=== PATIENT | male | born 1950 | race Caucasian/White ===

== ENCOUNTER 2016-02-21 08:28 | Emergency (ER) | payer BC ==
[2016-02-21 08:59] VITALS: BP 132/76
--- NOTE | 2016-02-21 10:08 | UC ---
Throat Pain/Nasal Dae HPI - HPI Summary HPI Summary: compliant of nasal congestion and cough that started approx 7 days ago worse at night d/t cough and post nasal discharge sore throat d/t coughing- cough is sometimes productive more fatigued than usual as the day goes on his symptoms get worse denies fever , chills, headaches, body aches denies shortness of breath, chest pain took some generic robitussin at night without relief - History of Current Complaint Chief Complaint: UCRespiratory Stated Complaint: HEAD,CHEST COLD/ COMPLAINT Time Seen by Provider: 02/21/16 09:59 Hx Obtained From: Patient - Allergies/Home Medications Allergies/Adverse Reactions: Allergies Allergy/AdvReac Type Severity Reaction Status Date / Time seasonal Allergy Runny Nose Uncoded 02/21/16 08:51 Home Medications: Home Medications Atorvastatin* [Lipitor*] mg PO BID 02/21/16 [History] GuaiFENesin DM* [Robitussin DM*] 10 ml PO Q6H PRN 02/21/16 [History Confirmed ] Hydrochlorothiazide TAB* [Hydrodiuril TAB*] 25 mg PO QAM 02/21/16 [History Confirmed 02/21/16] Lisinopril TAB* [Prinivil TAB*] 40 mg PO QAM 02/21/16 [History Confirmed ] Magnesium Oxide TAB* [MagOx 400 TAB*] 400 mg PO BID 02/21/16 [History Confirmed 02/21/16] Omeprazole CAP* [Prilosec CAP* 20 MG] 20 mg PO 1700 02/21/16 [History Confirmed 02/21/16] Potassium Chlor TAB* [Klor Con ER TAB*] 20 meq PO BID 02/21/16 [History Confirmed 02/21/16] PMH/Surg Hx/FS Hx/Imm Hx Previously Healthy: Yes Cardiovascular History Of: Reports: Hypertension - Surgical History Surgical History: Yes Surgery Procedure, Year, and Place: T&A as a child - Family History Known Family History: Positive: Cardiac Disease - parents, Hypertension - parents, Diabetes - Social History Occupation: Retired Alcohol Use: Weekly Alcohol Amount: 6-8 Substance Use Type: None Smoking Status (MU): Heavy Every Day Tobacco Smoker Type: Cigarettes Amount Used/How Often: 1 PPD Length of Time of Smoking/Using Tobacco: 42 Years Have You Smoked in the Last Year: Yes Household Exposure Type: Cigarettes Cessation Counseling: Patient Advised to Stop - Immunization History Most Recent Influenza Vaccination: December 2015 Review of Systems Constitutional: Negative Skin: Negative Eyes: Negative ENT: Nasal Discharge Respiratory: Cough Cardiovascular: Negative Gastrointestinal: Negative Genitourinary: Negative Motor: Negative Neurovascular: Negative Musculoskeletal: Negative Neurological: Negative Psychological: Negative All Other Systems Reviewed And Are Negative: Yes Physical Exam Triage Information Reviewed: Yes Appearance: No Pain Distress, Well-Nourished Vital Signs: Initial Vital Signs Temp 98 F 02/21/16 08:49 Pulse 68 02/21/16 08:49 Resp 16 02/21/16 08:49 BP 132/76 02/21/16 08:49 Pulse Ox 97 02/21/16 08:49 Vital Signs Reviewed: Yes Eyes: Positive: Conjunctiva Clear ENT: Positive: Pharyngeal erythema, Nasal congestion, TMs normal Neck: Positive: No Lymphadenopathy Respiratory: Positive: Wheezing - wheezing throughout some rhochi in LLL Cardiovascular: Positive: RRR, No Murmur Abdomen Description: Positive: Nontender, Soft Bowel Sounds: Positive: Present Musculoskeletal: Positive: No Edema Neurological: Positive: Alert Psychological Exam: Normal Skin Exam: Normal Throat Pain/Nasal Course/Dx - Course Course Of Treatment: exam completed. wheezing and rhonchi- smoker 1ppd for over 10 years. will treat as COPD exacerbation d/t possibilitiy of undiagnosed COPD will followup with PCP - Differential Dx/Diagnosis Differential Diagnosis/HQI/PQRI: URI Provider Diagnoses: bronchitis-. COPD exacerbation Discharge - Discharge Plan Condition: Stable Disposition: HOME Prescriptions: Albuterol HFA INHALER* [Ventolin HFA Inhaler*] 2 puff INH Q4H PRN #1 mdi PRN Reason: Sob/Wheezing Azithromycin TAB* [Zithromax TAB (Z-FOZIA) 250 mg #6 tabs] 2 tab PO .TODAY, THEN 1 DAILY #1 fozia Spacer/Aerosol-Holding Chamber [Aerochamber Mv] 1 mis XX Q4HR #1 mis predniSONE TAB* [Deltasone TAB*] 50 mg PO DAILY #5 tab Patient Education Materials: COPD (Chronic Obstructive Pulmonary Disease) (ED) , Acute Bronchitis (ED), How to Use a Metered-Dose Inhaler and a Spacer (ED) Referrals: Abdullahi Bowser MD [Primary Care Provider] - Additional Instructions: Please take antibiotic as directed Use your albuterol inhaler every 4-6 hours when needed for wheezing, shortness of breath or uncontrolled coughing. Increase fluids and rest Take acetaminophen or ibuprofen for fever or pain Please review your discharge instructions. If your symptoms do not improve please call your primary care provider or return to urgent care.
== END 2016-02-21 10:25 | disposition home or self-care (01) ==
LOC: UCCORT 08:28
DX: J44.1 Chronic obstructive pulmonary disease with (acute) exacerbation (principal); I10 Essential (primary) hypertension; F17.210 Nicotine dependence, cigarettes, uncomplicated
CPT/HCPCS: 99212; G0463

== ENCOUNTER 2018-03-02 07:17 | Emergency (ER) | payer MEDICARE ==
[2018-03-02 07:27] VITALS: BP 115/53
--- NOTE | 2018-03-02 07:50 | UC ---
Throat Pain/Nasal Dae HPI - HPI Summary HPI Summary: Per chemical dependency counselor "x2 nights pt states he has been "coughing like crazy, can't sleep ", Sinus congestion and runny nose. Body aches as well. Pt did get his flu vaccine this year. " -sx started suddenly 2 days ago. + body aches. no known fevers. appetite down. no n/v. -has albuterol rx for prn use. used a couple of times in past 2 days w/o signfiicant relief. - History of Current Complaint Chief Complaint: UCGeneralIllness Stated Complaint: COUGH,RUNNY NOSE,SORE THROAT,BODY ACHES Time Seen by Provider: 03/02/18 07:38 Pain Intensity: 0 - Allergies/Home Medications Allergies/Adverse Reactions: Allergies Allergy/AdvReac Type Severity Reaction Status Date / Time seasonal Allergy Runny Nose Uncoded 03/02/18 07:27 PMH/Surg Hx/FS Hx/Imm Hx Previously Healthy: Yes Endocrine History: Dyslipidemia Cardiovascular History: Hypertension - Surgical History Surgical History: Yes Surgery Procedure, Year, and Place: T&A as a child - Family History Known Family History: Positive: Cardiac Disease - parents, Hypertension - parents, Diabetes - Social History Alcohol Use: Weekly Alcohol Amount: 6-8 Substance Use Type: None Smoking Status (MU): Heavy Every Day Tobacco Smoker Type: Cigarettes Amount Used/How Often: 1 PPD Length of Time of Smoking/Using Tobacco: 42 Years Have You Smoked in the Last Year: Yes Household Exposure Type: Cigarettes - Immunization History Most Recent Influenza Vaccination: December 2015 Review of Systems All Other Systems Reviewed And Are Negative: Yes Constitutional: Positive: Fatigue Skin: Positive: Negative Eyes: Positive: Negative ENT: Positive: Nasal Discharge Respiratory: Positive: Cough Cardiovascular: Positive: Negative Gastrointestinal: Positive: Negative Genitourinary: Positive: Negative Motor: Positive: Negative Neurovascular: Positive: Negative Musculoskeletal: Positive: Negative Neurological: Positive: Negative Psychological: Positive: Negative Is Patient Immunocompromised?: No Physical Exam Triage Information Reviewed: Yes Appearance: Ill-Appearing - mild, moderate coughing. Vital Signs: Initial Vital Signs Temp 98.5 F 03/02/18 07:24 Pulse 81 03/02/18 07:24 Resp 18 03/02/18 07:24 BP 115/53 03/02/18 07:24 Pulse Ox 96 03/02/18 07:24 Vital Signs Reviewed: Yes Eye Exam: Normal ENT: Positive: Pharyngeal erythema, Nasal congestion, TMs normal - rt cerumen., Hoarse voice. Negative: Sinus tenderness Neck exam: Normal Neck: Positive: Supple, Nontender, No Lymphadenopathy Respiratory: Positive: Chest non-tender, No respiratory distress, Decreased breath sounds, Wheezing - rt insp/exp throughout. left clear. diminsihed througout. Cardiovascular Exam: Normal Cardiovascular: Positive: RRR Abdominal Exam: Normal Abdomen Description: Positive: Nontender, Soft Musculoskeletal Exam: Normal Neurological Exam: Normal Psychological Exam: Normal Skin Exam: Normal Throat Pain/Nasal Course/Dx - Course Course Of Treatment: -rapid flu + A. -CXR - neg. -discussed treatment with tamiflu. Witgh likely COPD, it is reasonable to treat and he prefers to treat. -We discussed risks of prednisone including but not limited to anxiety, agitation, insomnia, GI upset, elevated blood pressures and blood sugar readings , adrenal crisis and avascular necrosis of the hip. - Differential Dx/Diagnosis Differential Diagnosis/HQI/PQRI: Influenza, Pharyngitis, URI, Other - pneumonia Provider Diagnosis: Influenza A Discharge - Sign-Out/Discharge Documenting (check all that apply): Patient Departure All imaging exams completed and their final reports reviewed: Yes - Discharge Plan Condition: Stable Disposition: HOME Prescriptions: Oseltamivir CAP* [Tamiflu CAP*] 75 mg PO BID #10 cap predniSONE TAB* [Deltasone 20 MG TAB*] 40 mg PO DAILY 5 Days #10 tab Patient Education Materials: Influenza (ED) Referrals: Abdullahi Bowser MD [Primary Care Provider] - 6 Days Additional Instructions: Your flu test is positive for flu A. Make sure to use the albuterol every 4- 6 hrs. The prednisone will help with your cough as well. Please go to the ER if your symptoms worsen. - Billing Disposition and Condition Condition: STABLE Disposition: Home
[2018-03-02 08:02] LABS: Influenza A Molecular POSITIVE (Negative)
== END 2018-03-02 09:05 | disposition home or self-care (01) ==
LOC: UCCORT 07:17
DX: J10.1 Influenza due to other identified influenza virus with other respiratory manifestations (principal); I10 Essential (primary) hypertension; F17.210 Nicotine dependence, cigarettes, uncomplicated; Z91.09 Other allergy status, other than to drugs and biological substances
CPT/HCPCS: 71046; 99212; G0463

== ENCOUNTER 2023-05-25 08:30 | Inpatient (IN) ==
[~2023-05-25 08:30] MED LIST: HYDROmorphone 1 MG/1 ML SYRINGE IV PRN; Naloxone 0.4 mg VIAL 0.4 mg/ml 1 ml VIAL IV PRN; Ondansetron 4 mg VIAL 2 MG/ML 2 ml VIAL IV PRN; fentaNYL 100 mcg/2 ml 50 MCG/ML VIAL IV PRN
[2023-05-25] MEDS ORDERED: Tranexamic Acid 1 GM/100ML BAG 2,000 MG/200 ML BAG IV ONE (09:06)
[2023-05-25] MEDS ORDERED: ceFAZolin 2 GM PREMIX 2 GM/50 ML BAG ONE (09:06)
[2023-05-25] MEDS: Lactated Ringers 1000 ml BAG 1,000 ML IV SCH ×2 (09:14→16:09)
[2023-05-25 09:31] LABS: Rapid COVID-19 Molecular Undetected (Undetected)
[2023-05-25] MEDS ORDERED: ROPIVACAINE 5 MG/ML 30 ML BTL (0.5%) ONE (10:32)
[2023-05-25] MEDS ORDERED: Lidocaine 2% PF 5 ML VIAL ONE (11:00)
[2023-05-25] MEDS ORDERED: Propofol 10 MG/ML 20 ML BTL ONE ×2 (11:00→14:18)
[2023-05-25] MEDS ORDERED: Rocuronium 50 mg VIAL 10 mg/ml 5 ml VIAL (50 mg) ONE (11:01)
[2023-05-25] MEDS ORDERED: Midazolam 2 mg/2 ml VIAL 1 mg/ml 2 ml VIAL (2 mg) ONE (11:02)
[2023-05-25] MEDS ORDERED: fentaNYL 250 mcg/5 ml 50 MCG/ML 5 ml VIAL (250 MCG) ONE (11:02)
[2023-05-25] MEDS ORDERED: KETAMINE HCL 10 MG/ML 20 ml VIAL (200 MG) ONE (11:03)
[2023-05-25] MEDS ORDERED: Phenylephrine IV 10 MG/ML 1 ml VIAL ONE (11:04)
[2023-05-25] MEDS ORDERED: Ondansetron 4 mg VIAL 2 MG/ML 2 ml VIAL ONE (12:20)
[2023-05-25] MEDS ORDERED: Dexamethasone IV 4 MG/ML VIAL 1 ml VIAL ONE (12:20)
[2023-05-25] MEDS ORDERED: HYDROmorphone 0.5 MG/0.5 ML SYRINGE ONE (12:23)
[2023-05-25] MEDS ORDERED: Lactulose 30 ml UDC PO PRN (12:31)
[2023-05-25] MEDS ORDERED: Magnesium Hydroxide LIQ 30 ML UDC PO PRN (12:31)
[2023-05-25] MEDS ORDERED: Morphine 2 MG/ML SYRINGE IV PRN (12:31)
[2023-05-25] MEDS ORDERED: Ondansetron ODT 4 mg TAB 4 MG TAB PO PRN (12:31)
[2023-05-25] MEDS ORDERED: Ondansetron 4 mg VIAL 2 MG/ML 2 ml VIAL IV PRN (12:31)
[2023-05-25] MEDS ORDERED: Albuterol HFA INHALER 8 gm MDI INH PRN (15:11)
[2023-05-25] MEDS: Metoclopramide 5 MG/ML VIAL (10 mg) IV SLOW PU ONE (16:18)
[2023-05-25] MEDS: Buffered Lidocaine 1% SYRIN 1 ml INTRADERM ONE (16:18)
[2023-05-25] MEDS ORDERED: ceFAZolin 1 GM ADVAN 1 GM in NS 0.9% 50 ML 50 ML IVPB SCH (20:00)
[2023-05-25] MEDS: Magnesium Hydroxide LIQ 30 ML UDC PO SCH (21:19)
[2023-05-25] MEDS: ceFAZolin 1 GM in Dextrose 1 GM/50 ML BAG IVPB SCH (21:19)
[2023-05-26 06:28] LABS: Calcium 8.1 mg/dL (8.6-10.3); Creatinine, Serum 1.39 mg/dL (0.67-1.17); Potassium 4.5 mmol/L (3.5-5.0); eGFR CKD-EPI 54.2 (>60)
[2023-05-26 06:55] LABS: Hematocrit 33.1 % (38-53); Hemoglobin 11.4 g/dL (13.2-16.3); Mean Platelet Volume 8.6 fL (7.5-11.2); Platelet Count 100 10^3/uL (150-450)
[2023-05-26] MEDS: Vitamin THERAPEUTIC TAB PO SCH (07:27)
[2023-05-26] MEDS: Cholecalciferol (VIT D3) 1,000 unit TAB PO SCH (07:28)
[2023-05-26 10:29] VITALS: BP 110/58
== END 2023-05-26 13:05 | disposition home or self-care (01) | DRG 470 ==
LOC: AA 08:36 → SSU 12:31
PROVIDERS: ADMIT Orthopaedic Surgery Adult Reconstructive Orthopaedic Surgery; ATTEND Orthopaedic Surgery Adult Reconstructive Orthopaedic Surgery